=== PATIENT | male | born 1950 | race Caucasian/White ===

== ENCOUNTER 2016-10-05 12:27 | Emergency (ER) | payer MEDICARE ==
[~2016-10-05] VITALS: Ht 175.3 cm; Wt 104.5 kg
[2016-10-05 12:35] VITALS: BP 144/89; PULSE 64; RESP 16; O2SAT 97
--- NOTE | 2016-10-05 13:28 | ED.REPORT ---
HPI-Chest Pain 40 and Over Date of Service Oct 05, 2016 ED Provider: Alexy Doll PA-C Bobo is an otherwise healthy 58-year-old male who presents with a chief complaint of left shoulder pain. Reports a 3 to four-day history of constant left shoulder pain and altered sensation over the deltoid. Patient notes that he played golf twice previously for the development of his symptoms, and is left -handed. However 1 month ago to [employer] physical, his examiner stated that he "heard something" on auscultation of his heart. Patient reports that one week ago he had a normal EKG at his primary care providers however he does report a history of "skipped beats" noted when he checks his blood pressure. Denies chest pain, pressure, dyspnea, shortness of breath, jaw pain, diaphoresis, dizziness, vision changes, headache, nausea/vomiting. Denies history of diabetes, hypertension, hyperlipidemia, coronary artery disease, AL, TIA, CVA, cocaine, methamphetamine. Admits a 87-41-wnug-year history of smoking. Patient was seen at the urgent care and referred to the emergency department. Nursing Notes Stated Complaint: LEFT ARM PAIN-SENT FROM Chief Complaint: Extremity Trauma Nursing Notes Reviewed: Yes Allergies: Coded Allergies: No Known Allergies (Unverified , 10/05/16) General Time Seen by MD: 12:54 Chief Complaint Other (left shoulder pain) Sudden in Onset?: No Risk Factors )( CAD Risk Stratification SmokingNo Amphetamine, No Cocaine, No Diabetes mellitus, No Family history, No Hyperlipidemia, No Hypertension, No Known CAD Risk factors reviewed Past Medical History Past Medical History Notes: Denies Review of Systems Review of Systems Note: Negative unless stated otherwise in history of present illness Physical Exam General: Well appearing, well developed, well nourished, no acute distress. Head: Atraumatic, normocephalic. Eyes: No scleral icterus or injection. No discharge. Vision grossly intact. ENT: Voice clear, hearing grossly intact. Respiratory: Regular rate and rhythm. Breath sounds present, clear to auscultation and equal bilaterally. No respiratory distress. No increased work of breathing, speaks in complete sentences. Cardiovascular: Regular rate and rhythm, without murmur, gallop or rub. No pedal edema. Skin: Warm and dry. Neurological: Grossly nonfocal. Psychological: Alert and oriented. Speech appropriate, linear and logical. Behavior appropriate. Initial Vital Signs Vital Signs (First) Date Time Temp Pulse Resp B/P Pulse Ox O2 Delivery O2 Flow Rate FiO2 10/05/16 12:35 36.4 64 16 144/89 97 Room Air Initial VS: Vital signs abnormal (blood pressure mildly elevated) Interpretation & Diagnostics Lab Results Interpretation Result Diagram: 10/05/16 1415 10/05/16 1415 Test 10/05/16 14:15 White Blood Count 6.2th/mm3 (3.8-10.1) Red Blood Count 5.53mil/mm3 (4.40-5.80) Hemoglobin 16.3g/dL (13.8-17.2) Hematocrit 47.9% (41.0-50.0) Mean Corpuscular Volume 86.6fL (81-100) Mean Corpuscular Hemoglobin 29.5pg (27.0-35.0) Mean Corpuscular Hemoglobin Concent 34.0% (32.0-37.0) Red Cell Distribution Width 13.5% (12.3-15.4) Platelet Count 225bil/L (150-400) Neutrophils (%) (Auto) 55.2% (40-74) Lymphocytes (%) (Auto) 33.1% (14-46) Monocytes (%) (Auto) 7.9% (4-12) Eosinophils (%) (Auto) 3.1% (0-5) Basophils (%) (Auto) 0.5% (0-3) Sodium Level 140mEq/L (134-144) Potassium Level 5.0mEq/L (3.5-5.2) Chloride Level 101mEq/L (97-108) Carbon Dioxide Level 24mmol/L (18-29) Blood Urea Nitrogen 19mg/dL (8-27) Creatinine 0.88mg/dL (0.76-1.27) Estimat Glomerular Filtration Rate 92mL/min (>59) Glucose Level 101mg/dL (60-99) Calcium Level 10.0mg/dL (8.5-10.1) Total Bilirubin 0.5mg/dL (0.0-1.2) Aspartate Amino Transf (AST/SGOT) 23U/L (0-50) Alanine Aminotransferase (ALT/SGPT) 21U/L (0-44) Alkaline Phosphatase 64U/L (25-160) Troponin T < 0.010ug/L (0.0-0.011) Total Protein 7.7g/dL (6.4-8.4) Albumin 5.3g/dL (3.4-5.0) Hold Rene Top Tube Received (Received) Re-Eval/Medical Decision Med Decision/Clinical Course Lites healthy 66-year-old male with chief complaint of left shoulder pain. Patient reports 3 or 4 day history of left shoulder pain which is constant and associated with some altered sensation over the deltoid. Patient denies other symptoms. He reports a history of "skipped beats" and being evaluated for arrhythmia without findings. Patient admits that the pain likely began after 2 days of playing golf, which he had not done for several months. Seen for shoulder pain at the urgent care and referred to the emergency department for cardiac evaluation. Physical examination is reassuring with normal neurological examination, good range of motion left shoulder. CBC, CMP and troponin are normal. EKG is normal and unchanged from previous study performed at the urgent care. I am reassured that this is unlikely to be a cardiac event due to few risk factors, normal EKG, normal troponin, as well as the constant nature of the pain and lack of other symptoms.. I did not perform a 2 hour troponin as the patient reports steady symptoms for the last 3 or 4 days. I believe this is musculoskeletal shoulder pain. Advise [id number] analgesia, primary care follow-up, provided emergency return precautions. Patient verbalizes understanding of a consent to the plan. Discharge & Departure Primary Impression: Left shoulder pain Chronicity: acute Qualified Code: M25.512 - Pain in left shoulder Disposition: Home Discharge Condition All VS Reviewed: Yes Condition: Stable Additional Instructions: Evaluation for left shoulder pain in the emergency department. History, physical, blood work and EKG are reassuring that this pain is most likely a musculoskeletal pain as opposed to a cardiac event. I believe you are stable and safe to be discharged home. Rest the shoulder as much as possible over the next few days. You may find warm compresses helpful.The pain is best treated with 400 mg of ibuprofen (Advil , Motrin) every 6 hours, or 1000 mg of acetaminophen (Tylenol) every 6 hours. These drugs can be taken at the same time for more severe pain. Follow-up with your primary care provider if your symptoms have not significantly improved in a week. Return to emergency department for new or worsening symptoms including pain in your chest, pressure in your chest, difficulty breathing, shortness of breath, sweating, vomiting. Referrals: Donnell Hammer DO (PCP) EDSupervising Provider for APC: Nate Padilla MD copies to: Donnell Hammer Seth PA-C Oct 05, 2016 13:28
[2016-10-05 14:26] LABS: BASOPHILS % (AUTO) 0.5 % (0-3); EOSINOPHILS % (AUTO) 3.1 % (0-5); MONOCYTES % (AUTO) 7.9 % (4-12); Mean Corpuscular Hemoglobin 29.5 pg (27.0-35.0); Mean Corpuscular Volume 86.6 fL (81-100); NEUTROPHILS % (AUTO) 55.2 % (40-74); Platelet Count 225 bil/L (150-400)
[2016-10-05 14:51] LABS: TROPONIN T < 0.010 ug/L (0.0-0.011)
[2016-10-05 16:03] VITALS: BP 134/83; PULSE 64; RESP 16; O2SAT 97
== END 2016-10-05 16:04 | disposition home or self-care (01) ==
LOC: SED 12:27
DX: M25.512 Pain in left shoulder (principal); X58.XXXA Exposure to other specified factors, initial encounter; Y93.53 Activity, golf; Y92.39 Other specified sports and athletic area as the place of occurrence of the external cause; Y99.8 Other external cause status; Z87.891 Personal history of nicotine dependence

== ENCOUNTER → 2017-01-04 | Day surgery (SDC) | payer MEDICARE ==
[2017-01-04] VITALS (9 sets, daily range): BP systolic 115–137; BP diastolic 79–93; PULSE 52–61; RESP 8–17; O2SAT 92–97
[~2017-01-04] VITALS: Ht 175.3 cm; Wt 104.7 kg
[~2017-01-04] MED LIST: ASPI-973 PO; CeFAZolin 2 Gm/50 mL D5W IV Premix IV ONE; DOCO1CAP3 PO; Dexamethasone 4 mg/mL Inj IVPUSH PRN; Dexamethasone 4 mg/mL Inj ONE; EPHEDrine Sulfate 50 mg/mL Inj IVPUSH PRN; GARL1TAB2 PO; GLUC1CAP PO; HYDROcodone-APAP 5-325 mg Tablet PO PRN; HYDROmorphone 1 mg/mL Inj IVPUSH PRN; Ketorolac 15 mg/mL Inj IVPUSH ONE; Lactated Ringer's 1,000 ML IV SCH; Lactated Ringer's 500 ML IV PRN; MULT-1018 PO; MetoCLOpramide 5 mg/mL 2 mL Inj IVPUSH PRN; Ondansetron 2 mg/mL 2 mL Inj IVPUSH PRN; Ondansetron 2 mg/mL 2 mL Inj ONE; Phenylephrine 10,000 mCg/mL Inj IVPUSH PRN; Propofol 10,000 mCg/mL 20 mL Inj ONE; Ropivacaine-PF 0.5% 30 mL Inj INJ ONE; VIT1TABL83 PO; fentaNYL-PF 50 mCg/mL 2 mL Inj IVPUSH PRN; fentaNYL-PF 50 mCg/mL 2 mL Inj ONE
[2017-01-04] MEDS: Lactated Ringer's 1,000 ML IV SCH ×2 (08:37→09:12)
--- NOTE | 2017-01-04 09:25 | PCM.HPANE ---
Patient Data Surgeon Admitting Provider: Attending Provider:Dilip Barriga MD Primary Care Physician:Donnell Hammer DO Other Provider:Zaira Blackburningham Anesthesia Reason for Visit Left Knee Meniscal Tear Ht/WT & BMI Height (Feet): 5 Height (Inches): 9 Weight (Kilograms): 104.7 Body Mass Index 34.00 Allergies Coded Allergies: No Known Allergies (Unverified , 12/29/16) Past Anesthesia History Anesthesia History: Denies:: Abnormal Airway, Anesthesia Reactions, Difficult Intubation, Fam Anesthesia Reaction (daughter had nausea/vomiting post op), Fam Malignant Hypertherm, Malignant Hyperthermia Diabetes History Hx Diabetes?: No MRSA MRSA: No Medications Hypertension Medication: No Home Meds Incl Beta Rosy: No Reported Medications Vit B Comp/C/FA/Iron/Vit E (Vitamin B Complex Tablet)1 Each Tablet1 Each PO DAILY 12/29/16 Multivitamin (Multi Vitamin Daily)1 Each Tablet1 Each PO DAILY 30 Days Ref 0 12/29/16 Glucosamine Sulfate/MSM (MSM-Glucosamine 250-250 mg Cap)1 Each Capsule1 Each PO DAILY 12/29/16 Garlic 1 Each Tablet1 Each PO DAILY 12/29/16 Docosahexanoic Acid/Epa (Fish Oil Concentrate Softgel)1 Each Capsule1 Each PO DAILY 12/29/16 Aspirin 81 Mg [id number] Mg PO DAILY Ref 0 12/29/16 History History of ENT Problems?: No HEENT History: Denies:: Abnormal Airway Difficult Intubation Dysphagia Hearing Problem Sinus Problem TMJ Denture Type: None Teeth Condition: Within Normal Limits Hx of Heart Problems?: No Cardiovascular History: Denies:: AICD Abdominal Aortic Aneurism Atrial Fibrillation Chest Pain Coronary Artery Disease Edema Heart Murmur Hypertension Irregular Heartbeat Pacemaker Peripheral Vascular Hx of Respiratory Problem?: No Respiratory History: Denies:: Asthma COPD Emphysema Oxygen Administration Pneumonia Tuberculosis Use of C-PAP Machine Use of Inhalers / NEBS Hx Neurologic Problems?: No Neurological History: Denies:: Alzheimer's Disease CVA Dizziness Multiple Sclerosis Parkinson's Disease Seizures Hx of GI Problems?: No Hx of Problems?: No Genitourinary History: Denies:: Kidney Stones Urinary Tract Infection Male Hx: Denies:: Prostate Problems Skin History: Denies:: History Skin Disorders? Pressure Ulcers Hx Musculoskeletal Problems?: Yes Musculoskeletal History: Positive for:: Back Injury (hx of LBP) Musculoskeletal Trauma (left knee current admission problem, prior hx acl rpr same knee) Osteoarthritis (hands) Denies:: Fibromyalgia Joint Replacement Systemic Lupus Hx of Psycho/Social Problems?: No Psycho Social History: Denies:: Anxiety Hx Depression Hx Surgeries?: Yes (knee scope, acl left ) Hx Any Other Health Problems?: Yes Other History: Denies:: Cancer Thyroid Disease History Blood Transfusions: Positive for:: Accept Blood Products? Denies:: Blood Transfusions Hx Diabetes: No Hx Alcohol Use: YesAlcoholic Drinks Per Day: one drink weeklyHx Substance Use : NoHave You Smoked inLast 12 mo: No (quit 1979) Stop/Bang S-Snoring: Do You Snore Loudly: Yes T-Tired: feel tired, fatigued: No O-Obsered: Observed not breath: No P-Blood Pressure: treated: No B- Body Mass Index > 35 kg/m2: No A- Age over 50: Yes N- Neck Large Circumference: No G- Gender Male: Yes KASSY Total Score: 3 KASSY Risk Assessment: High Risk, =/>3 Yes KASSY Category 4 OutPt Procedure: Yes Risk Assessment Category Category 1A: Patient has history of documented sleep apnea, and HAS NOT received any narcotic, sedative or anesthesia administration during this stay. Category 1B: Patient has history of documented sleep apnea, and HAS received any narcotic , sedative or anesthesia administration during this stay Category 2: Patient has SUSPECTED Obstructive Sleep Apnea, and HAS received any narcotic , sedative or anesthesia administration during this stay. Category 3: Patient has SUSPECTED Obstructive Sleep Apnea and HAS NOT received narcotic, sedative or anesthesia administration during this stay. Category 4: Outpatient in Procedural Areas with known sleep apnea or who screen positive for High Risk via the STOP/BANG questionnaire. Exam Exam Vital Signs Vital Signs Date Time Temp Pulse Resp B/P Pulse Ox O2 Delivery O2 Flow Rate FiO2 01/04/17 08:11 35.8 60 16 131/90 95 Room Air General Appearance: Alert HEENT/AIRWAY: MP 3, Neck Movement (from, 3 fb) Lungs: Clear to Auscultation Heart: Regular Rate/Rhythm Meds/Labs/Diagnostics Admission Meds Current Medications Lactated Ringer's (Lr) 1,000 ml @ 120 mls/hr Q8H20M IV Last administered on t 08:37; Start 01/04/17 at 05:00; Stop 01/04/17 at 13:19 Plan Impression Patient chart reviewed, patient interviewed and anesthestic plan with risks, benefits, and alternatives discussed, and informed consent obtained. NPO per Anesth. Guidelines: Yes ASA Physical Status: ASA2 Mod Systemic Disease Anesthetic Plan: GA Bene/Risks/Altern/Consents: Yes HP Complete Prior to Induction: Yes Trey Lara MD Jan 04, 2017 08:41
--- NOTE | 2017-01-04 10:36 | PCM.ORTHOP ---
Orthopedic Operative Report Date of Service: Jan 04, 2017 Pre Operative Diagnosis Left knee medial meniscus tear, chondromalacia Post Operative Diagnosis Same Procedure Left knee arthroscopy, partial medial meniscectomy, chondroplasty, partial synovectomy Surgeon Surgeon: Dilip Barriga MD Assistants: None Indication for Procedure Left knee meniscus tear Findings Per dictation Details of Procedure INDICATIONS: Bobo Juarez is a 66-year-old male who has had a history of left knee pain. The patient has failed conservative management. X-rays show the tibiofemoral joints to be preserved with mild DJD. MRI was obtained which reveals medial meniscus tear. The patient has had persistent symptoms and is now brought to the operating room for arthroscopy. The risks, benefits, and alternatives of surgery were discussed with the patient. The risks included but were not limited to infection, bleeding, damage to vessels and nerves, loss of motion, continued pain, re-tear of the meniscus, deep venous thrombosis, and complications due to anesthesia including nerve injury, myocardial infarction, stroke, , etc. The patient stated understanding of the nature of the surgical procedure and gave written and verbal consent to proceed. PROCEDURE: The patient was brought to the operating room and placed supine on the operating room table. After the administration of general anesthesia the patient was placed in the supine position. Examination of the knee revealed no evident instability with a trace effusion. All prominences were padded with appropriately and neurovascular structures protected. The left knee was confirmed to be the appropriate site following surgical time out. The left lower extremity was examined under anesthesia. Range of motion was 0-135 degrees. There was no varus or valgus or anterior or posterior instability. The left lower extremity was then prepped and draped in the usual fashion. Sterile prep and drape was then undertaken of the knee. The knee joint was injected with 20 ccs of 1% Lidocaine, along with 3 ccs of 1 % lidocaine in the medial and lateral portal sites respectively. A standard anterolateral parapatellar stab wound was created. The knee joint was entered with a blunt- tipped obturator, followed by the 30-degree video arthroscope. An anteromedial portal was established under arthroscopic control. A routine arthroscopic survey was performed. The patellofemoral joint showed grade 2/3 chondromalacia which was debrided down to stable tissue with a shaver. The medial joint space was then entered. The articular surfaces showed grade 2/ 3 chondromalacia. A large bucket-handle medial meniscal tear was noted flipped anterolaterally. The shaver and the cutting instruments were inserted, and a debridement of the meniscus back to healthy tissue was then undertaken. The ACL and PCL were noted to be intact. The lateral joint space was then entered. The articular surfaces were intact with grade 2/3 chondromalacia. There was a degenerative fraying to the lateral aspect of the lateral meniscus. This was stable and not removed. Moderate synovitis was noted anteriorly in the medial and lateral compartment and debrided with a shaver. The knee was irrigated with an additional 2 liters of lactated Ringer's solution. Excess fluid was drained. The portals were closed with 3-0 nylon as well as xeroform. The knee was injected with 20 mL of 0.5% ropivacaine. A dry sterile dressing was applied, followed by an THELMA hose, soft roll, and BRIAN bandage. The patient was awakened in the operating room and transported to the recovery room in satisfactory condition. The patient appeared to tolerate the procedure well. At the completion of surgery the patient had soft compartments , palpable pulses, and brisk capillary refill. There were no complications noted. Please keep dressing clean dry and intact. Do not remove dressing until follow- up in clinic. If the dressing become soaked, you may remove the outer gauze and placed Band-Aids on the wounds. You may weight-bear as tolerated and maintain motion of your knee by bending it daily. You will follow up in clinic in 10-14 days for suture removal, and placement of new Steri-Strips. You will follow-up with me in clinic, and we will start physical therapy if needed. You will follow-up with me at 6 weeks postop and 12 weeks postop and will be released after that if improved. Please keep the affected extremity elevated when possible. [Please take aspirin as prescribed You may use ice and/ or heat as needed for comfort. (preferably ice during the first 48-72 hours) Please feel free to call with any further questions, comments, and/or concerns. Grafts, Implants: None Complications There were no periprocedural complications identified. Condition Stable Anesthetic Administered: GA Catheters: None Output, Estimated Blood Loss: 5 Blood Admin during surgery: No Surgical Cast or Splint: Other Surgical Specimen Removed: No Specimen sent to Pathology: No copies to: Dilip Barriga MD, Christopher L MD Jan 04, 2017 10:36
--- NOTE | 2017-01-04 10:52 | PCM.ANEP1 ---
Post Anesthesia PACU Phase 1 Assessment Vital Signs Vital Signs Date Time Temp Pulse Resp B/P Pulse Ox O2 Delivery O2 Flow Rate FiO2 01/04/17 10:30 58 17 127/81 92 Room Air 01/04/17 10:25 59 8 118/81 93 Room Air 01/04/17 10:20 58 15 129/93 94 Simple Mask 10 01/04/17 10:15 36.2 61 17 137/86 97 Simple Mask 10 01/04/17 08:11 35.8 60 16 131/90 95 Room Air Anesthetic Administered: GA Level of Alertness: Sleepy, easy to arouse SERNA's with Equal Strength: Yes Pain: No Nausea or Vomiting: No CV Function & Hydration Stable: Yes Airway Device: Oxygen Delivery: Simple Mask Lungs: Clear to Auscultation Dermatome Level: Full Sensation PACU Phase 2 Assessment Complications: No Follow up Care: N/A Patient Instructions Provided: N/A Trey Lara MD Jan 04, 2017 10:52
== END | disposition home or self-care (01) ==
LOC: SAS 07:24
PROVIDERS: ATTEND Orthopaedic Surgery
DX: S83.212A Bucket-handle tear of medial meniscus, current injury, left knee, initial encounter (principal); X50.0XXA Overexertion from strenuous movement or load, initial encounter; Y93.29 Activity, other involving ice and snow; M22.42 Chondromalacia patellae, left knee; M65.862 Other synovitis and tenosynovitis, left lower leg; I10 Essential (primary) hypertension; E78.00 Pure hypercholesterolemia, unspecified; Z79.82 Long term (current) use of aspirin
CPT/HCPCS: 29881; J0690; J1100; J1885; J2405; J2795; J3010; J7120